=== PATIENT | female | born 1945 | race Caucasian/White ===

== ENCOUNTER → 2024-08-24 | Outpatient (CLI) | payer OTHER ==
[2024-08-24 09:49] LABS: Basophils # (auto) 0 10 ^3/uL (0-0.2); Basophils % (auto) 0.7 % (0.0-2.0); Eosinophils # (auto) 0.1 10 ^3/uL (0-0.8); Eosinophils % (auto) 1.6 % (0.0-7.0); Hematocrit 36.2 % (36.0-46.0); Hemoglobin 12.3 g/dL (12.2-16.2); Lymphocytes # (auto) 1.4 10 ^3/uL (0.4-5.4); Mean Corpuscular Hemoglobin 30.7 pg (28.0-32.0); Mean Corpuscular Hgb Conc. 33.9 g/dL (32.0-36.0); Mean Corpuscular Volume 90.7 fL (80.0-100.0); Monocytes # (auto) 0.4 10 ^3/uL (0-1.3); Monocytes % (auto) 8.6 % (0.0-12.0); Neutrophils # (auto) 2.8 10 ^3/uL (1.6-8.6); Neutrophils % (auto) 59.1 % (37.0-80.0); Nucleated Red Blood Cells % 0.4 %; Platelet Count (auto) 303 10^3/uL (140-450); Red Blood Cells 3.99 10^6/uL (4.0-5.20); Red Cell Distribution Width 13.4 % (11.8-14.3); White Blood Cell 4.8 10^3/uL (4.4-10.8)
[2024-08-24 10:44] LABS: Alanine Aminotransferase 20 U/L (7-40); Albumin 3.7 g/dL (3.2-4.8); Alkaline Phosphatase 75 U/L (46-116); Anion Gap 5 (5-15); Aspartate Aminotransferase 29 U/L (13-40); BUN/Creatinine Ratio 15.3 (10.0-20.0); Calcium 9.4 mg/dL (8.7-10.4); Carbon Dioxide 28 mmol/L (20-31); Glucose 87 mg/dL (74-106); Potassium 4.4 mmol/L (3.5-5.1)
[2024-08-24 10:45] LABS: Bilirubin, Total 0.7 mg/dL (0.2-1.0); Total Protein 6.1 g/dL (5.7-8.2)
[2024-08-24 10:48] LABS: Blood Urea Nitrogen 9 mg/dL (9-23); Chloride 95 mmol/L (98-107); Creatine Kinase IFCC 171 U/L (34-145); Sodium 128 mmol/L (136-145)
[2024-08-24 11:04] LABS: Triglycerides 81 mg/dL (< 150)
[2024-08-24 11:05] LABS: LDL Cholesterol 98 mg/dL (< 100)
[2024-08-24 11:06] LABS: Cholesterol 162 mg/dL (< 200); HDL Cholesterol 54 mg/dL (40-59)
[2024-08-24 11:35] LABS: Free T3 2.84 pg/mL (2.3-4.2); Free T4 (Free Thyroxine) 1.07 ng/dL (0.89-1.76)
== END | disposition home or self-care (01) ==
LOC: LAB 08:01
PROVIDERS: ATTEND Internal Medicine
DX: E78.5 Hyperlipidemia, unspecified (principal); N81.2 Incomplete uterovaginal prolapse; R05.9 Cough, unspecified; Z00.00 Encounter for general adult medical examination without abnormal findings
CPT/HCPCS: 36415; 80053; 80061; 82306; 82550; 84439; 84443; 84481; 85025; 87086